=== PATIENT | female | born 1955 | race Hispanic/Latino ===

== ENCOUNTER 2018-06-28 19:57 | Emergency (ER) | payer SELFPAY ==
--- NOTE | 2018-06-28 20:50 | Emergency Department Report ---
HPI - General Chief Complaint: Seizure Time Seen by Provider: 06/28/18 20:48 - HPI HPI: Room 8 The patient is a 62-year-old female presenting with a chief complaint of seizure. The patient has a history of seizures and states she's been compliant with her Keppra. The patient states today she had 2 "seizures." The patient states she feels dizzy and then falls and then shakes and trembles mostly in left arm and left leg. The patient states she is conscious during the entire episode and recalls everything. The patient states she felt shaky on the inside and made her worried to her bed and then states she had a second episode approximately one hour later. The patient also states she fell a few days ago injuring her left wrist but did not seek medical attention. Patient now complains of feeling weak and having pain in her head and left wrist Location: [See above] Duration: [See above] Quality: Pain Severity: Moderate Modifying factors: [see above] Context: [see above] Mode of transportation: [not driving] ED Past Medical Hx - Past Medical History Hx Hypertension: Yes Hx Seizures: Yes Additional medical history: Hyperthyroid - Surgical History Hx Breast Surgery: Yes (breast reduction) Additional Surgical History: , colonoscopy, tonsilectomy - Family History Family history: no significant - Social History Smoking Status: Current Every Day Smoker (1/4 pack per day) Substance Use Type: None (denies illicit drug use), Alcohol - Medications Home Medications: Home Medications Medication Instructions Recorded Confirmed Last Taken Type HYDROcodone/APAP 5-325 [[place] 1 each PO Q4HR PRN #15 tablet 06/13/15 Unknown Rx 5-325 mg TAB] Ibuprofen [Motrin 800 MG tab] 800 mg PO Q8HR #30 tablet 06/13/15 Unknown Rx HYDROcodone/APAP 5-325 [[place] 1 - 2 each PO Q6HR PRN #20 tablet 06/29/18 Unknown Rx 5/325] Ibuprofen [Motrin 800 MG tab] 800 mg PO Q8HR PRN #20 tablet 06/29/18 Unknown Rx ED Review of Systems ROS: Stated complaint: SEIZURE Other details as noted in HPI Constitutional: no symptoms reported Eyes: denies: eye pain ENT: denies: throat pain Respiratory: no symptoms reported Cardiovascular: denies: chest pain Endocrine: no symptoms reported Gastrointestinal: denies: abdominal pain Genitourinary: denies: dysuria Musculoskeletal: back pain, arthralgia Neurological: headache Physical Exam - Physical Exam Vital Signs: Vital Signs 06/28/18 20:33 Temperature 98.2 F Pulse Rate 55 L Respiratory 18 Rate Blood Pressure 135/52 O2 Sat by Pulse 97 Oximetry Physical Exam: GENERAL: The patient is well-developed well-nourished female lying on stretcher not appearing to be in acute distress. [] HEENT: Normocephalic. Atraumatic. Extraocular motions are intact. Patient has moist mucous membranes. NECK: Supple. Trachea midline CHEST/LUNGS: Clear to auscultation. There is no respiratory distress noted. HEART/CARDIOVASCULAR: Regular. There is no tachycardia. There is no gallop rub or murmur. ABDOMEN: Abdomen is soft, nontender. Patient has normal bowel sounds. There is no abdominal distention. SKIN: There is no rash. There is no edema. There is no diaphoresis. NEURO: The patient is awake, alert, and oriented. The patient is cooperative. The patient has no focal neurologic deficits. The patient has normal speech. Cranial nerves II through XII grossly intact, no drift. Normal sensation throughout MUSCULOSKELETAL: There is mild discomfort to palpation to the dorsum of the left wrist ED Course Vital Signs 06/28/18 20:33 Temperature 98.2 F Pulse Rate 55 L Respiratory 18 Rate Blood Pressure 135/52 O2 Sat by Pulse 97 Oximetry ED Medical Decision Making - Lab Data Result diagrams: 06/28/18 21:00 06/28/18 21:00 Laboratory Tests 06/28/18 06/28/18 06/28/18 21:00 21:00 21:00 WBC 5.9 RBC 2.35 L Hgb 7.3 L Hct 22.2 L MCV 94 MCH 31 MCHC 33 RDW 24.7 H Plt Count 275 Lymph % (Auto) 23.3 [place] % (Auto) 8.6 H Eos % (Auto) 2.7 Baso % (Auto) 1.5 Lymph # 1.4 [place] # 0.5 Eos # 0.2 Baso # 0.1 Seg Neutrophils % 63.9 Seg Neutrophils # 3.8 Sodium 134 L Potassium 3.4 L Chloride 99.0 Carbon Dioxide 20 L Anion Gap 18 BUN 9 Creatinine 0.5 L Estimated GFR > 60 BUN/Creatinine Ratio 18 Glucose 98 Calcium 8.8 Total Bilirubin 1.20 AST 67 H ALT 18 Alkaline Phosphatase 296 H Total Protein 6.8 Albumin 3.5 L Albumin/Globulin Ratio 1.1 Plasma/Serum Alcohol < 0.01 - Radiology Data Radiology results: report reviewed (CT head), image reviewed (CT head, left wrist x-ray, left hand x-ray) interpreted by me: Left wrist [id number] radius fracture [address] [address] Cat Scan Report Signed Patient: BING GAMBLE MR#: [id number] : 1955 Acct:[id number] Age/Sex: 62 / F ADM Date: 06/28/18 Loc: ED Attending Dr: Ordering Physician: KELVIN LOPEZ MD Date of Service: 06/28/18 Procedure(s): CT head/brain wo con Accession Number(s): [id number] cc: KELVIN LOPEZ MD FINAL REPORT PROCEDURE: CT HEAD/BRAIN WO CON TECHNIQUE: Computerized tomography of the head was performed without contrast material. HISTORY: Seizure COMPARISON: No prior studies are available for comparison. FINDINGS: Skull and scalp: Normal. Paranasal sinuses: Normal. Ventricles and subarachnoid spaces: Are prominent consistent with cerebral atrophy appropriate for patient's age.. Cerebrum: An irregular area of encephalomalacia is noted in the right parietotemporal region with ex vacuo dilatation of ventricular trigone. There is mild degree bilateral periventricular nonspecific white matter hypodensity most likely representing chronic microangiopathy.. Cerebellum and brainstem: No evidence of hemorrhage, acute infarction or mass. Vasculature: Normal. Comments: None. 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 Transcribed By: [facility] Dictated By: AMPARO BATRES Electronically Authenticated By: AMPARO BATRES Signed Date/Time: 06/28/182208 DD/ 08 TD/TT: 06/28/182208 [address] [address] XRay Report Signed Patient: BING GAMBLE MR#: [id number] : 1955 Acct:[id number] Age/Sex: 62 / F ADM Date: 06/28/18 Loc: ED Attending Dr: Ordering Physician: KELVIN LOPEZ MD Date of Service: 06/28/18 Procedure(s): XR wrist 2V LT Accession Number(s): [id number] cc: KELVIN LOPEZ MD Fluoro Time In Minutes: FINAL REPORT PROCEDURE: XR WRIST 2V LT TECHNIQUE: LEFT wrist radiographs, AP and lateral views. X-ray wrist three-view HISTORY: pain after fall COMPARISON: No prior studies are available for comparison. FINDINGS: Fracture(s)and/or Dislocation(s): A comminuted fracture is noted in involving the diaphysis of 5th metacarpal. An irregular very transverse impacted fracture is noted involving distal radial metaphysis. Small irregular ossific densities are noted at the tip of the ulnar styloid consistent with fractures. Alignment: Normal. Joint space(s): Normal. Soft tissues: Normal. Bone mineralization: Normal. Foreign bodies: None. IMPRESSION: Acute fractures involving 5th metacarpal, distal radial metaphysis and ulnar styloid. Transcribed By: [facility] Dictated By: AMPARO BATRES Electronically Authenticated By: AMPARO BATRES Signed Date/Time: 06/28/182238 DD/ 38 TD/TT: 06/28/182238 [facility] [address] [place] [address] XRay Report Signed Patient: BING GAMBLE MR#: [id number] : 1955 Acct:[id number] Age/Sex: 62 / F ADM Date: 06/28/18 Loc: ED Attending Dr: Ordering Physician: KELVIN LOPEZ MD Date of Service: 06/28/18 Procedure(s): XR hand 3+V LT Accession Number(s): [id number] cc: KELVIN LOPEZ MD Fluoro Time In Minutes: FINAL REPORT PROCEDURE: XR HAND 3+V LT TECHNIQUE: LEFT hand radiographs, AP, lateral, and oblique views. CPT 24861-FK HISTORY: fall; LEFT HAND PAIN COMPARISON: No prior studies are available for comparison. FINDINGS: Fracture (s) and/or Dislocation(s): A comminuted fracture is noted involving the diaphysis of 5th metacarpal without significant displacement. Small ossific densities are identified at the tip of the ulnar styloid. An irregularly transverse impacted fracture is noted involving the distal radial metaphysis.. Alignment: Normal . Joint space(s): Normal . Soft tissues: Normal . Bone mineralization: Normal . Foreign bodies: None . IMPRESSION: Acute fractures involving the 5th metacarpal, distal radial metaphysis and ulnar styloid.. Transcribed By: [facility] Dictated By: AMPARO BATRES Electronically Authenticated By: MAPARO BATRES Signed Date/Time: 06/28/182236 DD/ 36 TD/TT: 06/28/182236 - Differential Diagnosis seizures, focal seizures, radial fracture Critical care attestation.: If time is entered above; I have spent that time in minutes in the direct care of this critically ill patient, excluding procedure time. ED Disposition Clinical Impression: Distal radius fracture, left, Fracture of fifth metacarpal bone of left hand, Anemia, Seizures Disposition: TO HOME OR SELFCARE Is pt being admited?: No Does the pt Need Aspirin: No Condition: Stable Instructions: Recurrent Seizures Adult (ED) Prescriptions: HYDROcodone/APAP 5-325 [[place] 5/325] 1 - 2 each PO Q6HR PRN #20 tablet PRN Reason: Pain Ibuprofen [Motrin 800 MG tab] 800 mg PO Q8HR PRN #20 tablet PRN Reason: Pain, Moderate (4-6) Referrals: [facility] [Outside] - 3-5 Days ROYAL MCGUIRE MD [Staff Physician] - 3-5 Days (Dr. Mcguire is an orthopedic surgeon.) Time of Disposition: 00:02
[2018-06-28] MEDS ORDERED: FIORICET PO ONE (21:24)
[2018-06-28 21:27] LABS: Basophils # (Auto) 0.1 K/mm3 (0.0-0.1); Basophils % (Auto) 1.5 % (0.0-1.8); Eosinophils # (Auto) 0.2 K/mm3 (0.0-0.4); Eosinophils % (Auto) 2.7 % (0.0-4.3); Hematocrit 22.2 % (30.3-42.9); Hemoglobin 7.3 gm/dl (10.1-14.3); Lymphocytes # (Auto) 1.4 K/mm3 (1.2-5.4); Lymphocytes % (Auto) 23.3 % (13.4-35.0); Mean Corpuscular HGB Conc 33 % (30-34); Mean Corpuscular Hemoglobin 31 pg (28-32); Mean Corpuscular Volume 94 fl (79-97); Monocytes # (Auto) 0.5 K/mm3 (0.0-0.8); Monocytes % (Auto) 8.6 % (0.0-7.3); Platelet Count 275 K/mm3 (140-440); Red Blood Count 2.35 M/mm3 (3.65-5.03)
[2018-06-28] MEDS ORDERED: KEPPRA 1,000 MG/NS 0.75% 100ML 1,000 MG/100 ML BAG IV ONE (21:28)
[2018-06-28 21:32] LABS: Red Cell Distribution Width 24.7 % (13.2-15.2)
[2018-06-28 22:03] LABS: Alanine Aminotransferase 18 units/L (7-56); Albumin 3.5 g/dL (3.9-5); BUN/Creatinine Ratio 18; Blood Urea Nitrogen 9 mg/dL (7-17); Calcium 8.8 mg/dL (8.4-10.2); Hemolysis Index 1
--- NOTE | 2018-06-28 22:09 | Cat Scan Report ---
FINAL REPORT PROCEDURE: CT HEAD/BRAIN WO CON TECHNIQUE: Computerized tomography of the head was performed without contrast material. HISTORY: Seizure COMPARISON: No prior studies are available for comparison. FINDINGS: Skull and scalp: Normal. Paranasal sinuses: Normal. Ventricles and subarachnoid spaces: Are prominent consistent with cerebral atrophy appropriate for patient's age.. Cerebrum: An irregular area of encephalomalacia is noted in the right parietotemporal region with ex vacuo dilatation of ventricular trigone. There is mild degree bilateral periventricular nonspecific white matter hypodensity most likely representing chronic microangiopathy.. Cerebellum and brainstem: No evidence of hemorrhage, acute infarction or mass. Vasculature: Normal. Comments: None. 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
--- NOTE | 2018-06-28 22:38 | XRay Report ---
FINAL REPORT PROCEDURE: XR HAND 3+V LT TECHNIQUE: LEFT hand radiographs, AP, lateral, and oblique views. CPT 22259-AH HISTORY: fall; LEFT HAND PAIN COMPARISON: No prior studies are available for comparison. FINDINGS: Fracture (s) and/or Dislocation(s): A comminuted fracture is noted involving the diaphysis of 5th metacarpal without significant displacement. Small ossific densities are identified at the tip of the ulnar styloid. An irregularly transverse impacted fracture is noted involving the distal radial metaphysis.. Alignment: Normal . Joint space(s): Normal . Soft tissues: Normal . Bone mineralization: Normal . Foreign bodies: None . IMPRESSION: Acute fractures involving the 5th metacarpal, distal radial metaphysis and ulnar styloid..
--- NOTE | 2018-06-28 22:40 | XRay Report ---
FINAL REPORT PROCEDURE: XR WRIST 2V LT TECHNIQUE: LEFT wrist radiographs, AP and lateral views. X-ray wrist three-view HISTORY: pain after fall COMPARISON: No prior studies are available for comparison. FINDINGS: Fracture(s)and/or Dislocation(s): A comminuted fracture is noted in involving the diaphysis of 5th metacarpal. An irregular very transverse impacted fracture is noted involving distal radial metaphysis. Small irregular ossific densities are noted at the tip of the ulnar styloid consistent with fractures. Alignment: Normal. Joint space(s): Normal. Soft tissues: Normal. Bone mineralization: Normal. Foreign bodies: None. IMPRESSION: Acute fractures involving 5th metacarpal, distal radial metaphysis and ulnar styloid.
[2018-06-29 00:18] VITALS: BP 149/64
== END 2018-06-29 01:00 | disposition home or self-care (01) ==
LOC: ED 19:57
DX: S52.502A Unspecified fracture of the lower end of left radius, initial encounter for closed fracture (principal); I10 Essential (primary) hypertension; E05.90 Thyrotoxicosis, unspecified without thyrotoxic crisis or storm; F17.200 Nicotine dependence, unspecified, uncomplicated; Z90.89 Acquired absence of other organs; Z86.2 Personal history of diseases of the blood and blood-forming organs and certain disorders involving the immune mechanism; W06.XXXA Fall from bed, initial encounter; Y93.89 Activity, other specified; Y92.89 Other specified places as the place of occurrence of the external cause; Y99.8 Other external cause status
CPT/HCPCS: 29125; 36415; 70450; 73100; 73130; 80048; 80053; 85025; 96365; 99285; G0480; J1953; 80320